=== PATIENT | female | born 1955 | race Caucasian/White ===

== ENCOUNTER → 2018-04-08 | Outpatient (CLI) | payer BC | END | disposition home or self-care (01) | LOC: HKI 14:18 | DX: M17.12 Unilateral primary osteoarthritis, left knee (principal); M25.562 Pain in left knee; F12.90 Cannabis use, unspecified, uncomplicated; Z87.891 Personal history of nicotine dependence; Z96.643 Presence of artificial hip joint, bilateral | CPT/HCPCS: 20610; 73564-50 ==